=== PATIENT | male | born 1975 | race African-American/Black ===

== ENCOUNTER 2022-09-02 09:33 | Inpatient (IN) | payer MEDICAID ==
[~2022-09-02] VITALS: Ht 182.9 cm; Wt 68.0 kg
--- NOTE | 2022-09-02 09:58 | NUR ---
Pt CONNER, on a stretcher. Pt stated that he's experiencing pain on his head, R shoulder and L hip d/t falling of the stairs last night. Rated pain 8/10, aching, denies dizziness, n/v. Pt is not in acute distress. Pt stated that he has allergic reaction from "some meds" - per pt, but is uncertain which medications he is allergic to, stated that he becomes itchy after taking meds and that is all. Pt stays at home with the girlfriend. Seen by Dr. Camarillo for [facility].
[2022-09-02] MEDS ORDERED: HYDROCODONE/APAP 5-325MG TABLET ONE (10:27)
[2022-09-02] MEDS ORDERED: HYDROCODONE/APAP 5-325MG TABLET PO ONE (10:30)
--- NOTE | 2022-09-02 12:02 | NUR ---
COVID swab collected and sent to LAB.
[2022-09-02 12:06] LABS: HEMATOCRIT 35.1 % (36.7-47.1); MEAN CORPUSCULAR HEMOGLOBIN 34.1 uug (23.8-33.4); MEAN CORPUSCULAR VOLUME 97.5 fL (73.0-96.2); PLATELET COUNT (AUTO) 191 K/uL (152-348)
[2022-09-02 12:27] LABS: CREATININE 0.9 mg/dL (0.6-1.3); POTASSIUM 3.4 mmol/L (3.5-5.1)
[2022-09-02] MEDS ORDERED: ONDANSETRON 4 MG/2 ML VIAL IV PRN (12:30)
[2022-09-02] MEDS ORDERED: MORPHINE SULFATE 2 MG/1 ML DISP.SYRIN IV PRN (12:30)
[2022-09-02] MEDS ORDERED: hydrALAZINE HCL 20 MG/1 ML VIAL IV PRN (12:30)
[2022-09-02] MEDS ORDERED: MORPHINE SULFATE 2 MG/1 ML DISP.SYRIN ONE (12:33)
[2022-09-02] MEDS ORDERED: ACETAMINOPHEN 325 MG TABLET ONE (12:33)
[2022-09-02] MEDS ORDERED: hydrALAZINE HCL 20 MG/1 ML VIAL ONE (12:33)
[2022-09-02] MEDS ORDERED: ONDANSETRON 4 MG/2 ML VIAL ONE ×2 (12:33→16:20)
--- NOTE | 2022-09-02 12:45 | NUR ---
Frannie RN was unavailable to receive report. Will try again in 15 mins.
--- NOTE | 2022-09-02 13:03 | NUR ---
Fran stevens in [facility] - 09/02/22 at 1321 by ISAIAS Report given to Deya FITZGERALD
--- NOTE | 2022-09-02 13:03 | NUR ---
Report given to Deya ROMO.
[2022-09-02 14:30] VITALS: BP 109/92
--- NOTE | 2022-09-02 14:49 | NUR ---
46 year old male received to room 305 for left hip fx.pt is axox4 vs are stable call light with in reach md notified the admission
[2022-09-02] MEDS ORDERED: GLYCOPYRROLATE 0.2 MG/ML VIAL ONE (16:20)
[2022-09-02] MEDS ORDERED: CEFAZOLIN 1 G VIAL ONE (16:20)
[2022-09-02] MEDS ORDERED: DEXAMETHASONE SOD PHOSPHATE 4 MG INJ ONE (16:20)
[2022-09-02] MEDS ORDERED: KETOROLAC TROMETHAMINE 30 MG INJ ONE (16:20)
[2022-09-02] MEDS ORDERED: LIDOCAINE-MPF 2% 5 ML VIAL ONE (16:20)
[2022-09-02] MEDS ORDERED: PROPOFOL 200 MG/20 ML BOTTLE ONE (16:20)
[2022-09-02] MEDS ORDERED: LORAZEPAM 2 MG/1 ML VIAL IV PRN (17:30)
[2022-09-02] MEDS ORDERED: CHLORDIAZEPOXIDE HCL 25 MG CAPSULE PO ONE (17:30)
--- NOTE | 2022-09-02 19:30 | NUR ---
RECEIVED PATIENT SLEEPING IN BED. AROUSE TO VERBAL STIMULI. AOX4. NO COMPLAIN OF PAIN AT THIS TIME. DENIES ANY SOB. IV SITE ON LEFT FA INTACT AND PATENT. SAFETY AND COMFORT MEASURES INITIATED AND CALL LIGHT WITHIN REACH. CONTINUE TO MONITOR.
--- NOTE | 2022-09-02 20:03 | NUR ---
Telephone call from lab and reported Troponin level of 107. Value trending on expected direction.
--- NOTE | 2022-09-02 20:15 | NUR ---
PATIENT REFUSED TO WEAR RIGHT ARM SLING. STATED "I DON'T WANT TO BE BOTHERED, DO IT IN THE MORNING." EDUCATION PROVIDED BUT CONTINUED TO REFUSE. WILL TRY AGAIN IN THE MORNING.
[2022-09-02] MEDS: CHLORDIAZEPOXIDE HCL 25 MG CAPSULE PO SCH (21:09)
[2022-09-02] MEDS: HEPARIN SODIUM,PORCINE 5,000 UNITS/ML VIAL SQ SCH (21:09)
[2022-09-02] MEDS: ACETAMINOPHEN 325 MG TABLET PO PRN (22:15)
[2022-09-03 04:30] VITALS: BP 110/79
[2022-09-03] MEDS: ACETAMINOPHEN 325 MG TABLET PO PRN (05:42)
[2022-09-03 05:44] LABS: HEMATOCRIT 36.6 % (36.7-47.1); MEAN CORPUSCULAR HEMOGLOBIN 34.6 uug (23.8-33.4); MEAN CORPUSCULAR VOLUME 98.2 fL (73.0-96.2); PLATELET COUNT (AUTO) 183 K/uL (152-348)
[2022-09-03 05:59] LABS: ETHANOL < 3 MG/DL (0-0)
[2022-09-03 06:01] LABS: CARBON DIOXIDE 29 mmol/L (21-32); CHLORIDE 101 mmol/L (98-107); CREATININE 0.9 mg/dL (0.6-1.3); GLUCOSE 133 mg/dL (74-106); POTASSIUM 3.2 mmol/L (3.5-5.1); UREA NITROGEN, BLOOD 9 mg/dL (7-18)
[2022-09-03 06:06] LABS: ALANINE AMINOTRANSFERASE 79 U/L (16-63); ALKALINE PHOSPHATASE 60 U/L (50-136); ASPARTATE AMINOTRANSFERASE 91 U/L (15-37); BILIRUBIN,TOTAL 1.2 mg/dL (0.2-1.0); PHOSPHOROUS 3.2 mg/dL (2.5-4.9); TOTAL PROTEIN, SERUM 6.7 g/dL (6.4-8.2)
--- NOTE | 2022-09-03 06:30 | NUR ---
PATIENT SLEPT INTERMITTENTLY THROUGH THE NIGHT. AROUSE TO VERBAL STIMULI. AOX4. COMPLAIN OF RIGHT HIP PAIN. TYLENOL GIVEN PRN AND EFFECTIVE. DENIES ANY SOB. NPO INITIATED AT MIDNIGHT FOR LEFT HIP IM NAILING TODAY. IV SITE ON LEFT FA INTACT AND PATENT. ENFORCED EDUCATION ON RIGHT SLING. PATIENT CONTINUES TO REFUSE SLING. SAFETY AND COMFORT MEASURES MAINTAINED AND CALL LIGHT WITHIN REACHED.
[2022-09-03] MEDS: HEPARIN SODIUM,PORCINE 5,000 UNITS/ML VIAL SQ SCH (08:02)
[2022-09-03] MEDS: CHLORDIAZEPOXIDE HCL 25 MG CAPSULE PO SCH ×2 (08:02→16:41)
[2022-09-03] MEDS ORDERED: POTASSIUM CHLORIDE 20 MEQ TAB.PRT.SR PO ONE (10:00)
[2022-09-03] MEDS ORDERED: IV LACTATED RINGERS SOLUTION 1,000 ML IV PRN (10:45)
[2022-09-03] MEDS: HYDROMORPHONE 1 MG/1 ML DISP.SYRIN IV PRN (11:02)
[2022-09-03 11:45] VITALS: BP 112/75
--- NOTE | 2022-09-03 13:05 | NUR ---
pt went to or via bed for surgery in stable condition
[2022-09-03] MEDS ORDERED: HYDROMORPHONE 2 MG/1 ML DISP.SYRIN ONE (13:26)
[2022-09-03] MEDS ORDERED: MIDAZOLAM HCL 2 MG/2 ML VIAL ONE (13:26)
[2022-09-03] MEDS ORDERED: VANCOMYCIN 1000 MG VIAL ONE (13:40)
[2022-09-03] MEDS ORDERED: BUPIVACAINE 0.25% 30 ML VIAL ONE (13:43)
[2022-09-03] MEDS ORDERED: SEVOFLURANE 250 ML BOTTLE ONE (14:20)
[2022-09-03] MEDS ORDERED: FENTANYL CITRATE 100 MCG/2 ML AMPUL ONE (15:39)
[2022-09-03] MEDS ORDERED: POTASSIUM CHLORIDE 20 MEQ in IV D5 1/2 NS 1000 ML 1,000 ML IV PRN (16:00)
--- NOTE | 2022-09-03 16:39 | NUR ---
pt received from recovery room via bed in stable condition call light with in reach vs are stable
[2022-09-03] MEDS: LACTATED RINGERS IV PRN (16:41)
[2022-09-03] MEDS: POTASSIUM CHLORIDE IV PRN (16:41)
[2022-09-03 16:51] VITALS: BP 134/90
[2022-09-03 20:00] VITALS: BP 124/86
[2022-09-03] MEDS ORDERED: ACETAMINOPHEN ES 500 MG TABLET PO PRN (20:45)
[2022-09-03] MEDS: ACETAMINOPHEN ES 500 MG TABLET PO PRN (20:55)
[2022-09-03] MEDS: CEFAZOLIN 1 G in IV DEXTROSE 5% 50 ML IV SCH (21:57)
[2022-09-04 04:00] VITALS: BP 121/82
[2022-09-04] MEDS: HYDROMORPHONE 1 MG/1 ML DISP.SYRIN IV PRN ×4 (05:16→18:17)
[2022-09-04] MEDS: LACTATED RINGERS IV PRN (05:17)
[2022-09-04] MEDS: POTASSIUM CHLORIDE IV PRN (05:17)
[2022-09-04] MEDS: CEFAZOLIN 1 G in IV DEXTROSE 5% 50 ML IV SCH (05:17)
--- NOTE | 2022-09-04 05:27 | NUR ---
Slept intermittently. Noticed some restlessness and anxiety, Ativan given, tolerated well. IV site intact. No distress noted at this time. Will endorse to day shift.
[2022-09-04 06:44] LABS: CREATININE 0.9 mg/dL (0.6-1.3); POTASSIUM 3.7 mmol/L (3.5-5.1)
[2022-09-04] MEDS: CHLORDIAZEPOXIDE HCL 25 MG CAPSULE PO SCH ×2 (08:25→16:50)
[2022-09-04] MEDS: HEPARIN SODIUM,PORCINE 5,000 UNITS/ML VIAL SQ SCH ×2 (08:25→20:09)
[2022-09-04] MEDS: ACETAMINOPHEN ES 500 MG TABLET PO PRN ×2 (08:48→20:14)
--- NOTE | 2022-09-04 11:30 | NUR ---
Pt was given a dose of Dilaudid (0.5 mg) at 11:15 am, 5 minutes after that he stated he never got his dose of Dilaudid. EV and Dr Reyes and charge nurse are informed. Pt is being rude and loud, screaming at stuff.
--- NOTE | 2022-09-04 12:10 | NUR ---
pt irate and screaming in the hallway saying he didnt get his paihn medication, Dr Reyes talked to pt and ordered a one time dose of Dilaudid 0.5mg IV- med given by Dr Reyes to pt-at 1216- medicine entered on the order prn q 6h at 1216 instead of one time order
[2022-09-04] MEDS: HYDROMORPHONE 1 MG/1 ML DISP.SYRIN IV ONE ×2 (12:16→13:02)
[2022-09-04 16:00] VITALS: BP 129/80
[2022-09-04 20:22] VITALS: BP 123/77
[2022-09-05] MEDS: HYDROMORPHONE 1 MG/1 ML DISP.SYRIN IV PRN ×5 (00:20→22:53)
[2022-09-05] MEDS: ACETAMINOPHEN ES 500 MG TABLET PO PRN ×4 (02:32→20:38)
[2022-09-05] MEDS ORDERED: NAPR-1164 PO (07:06)
[2022-09-05] MEDS ORDERED: ACET-73 PO (07:06)
[2022-09-05] MEDS ORDERED: PANT40TA2 PO (07:06)
[2022-09-05] MEDS: HEPARIN SODIUM,PORCINE 5,000 UNITS/ML VIAL SQ SCH ×2 (08:30→20:30)
[2022-09-05 09:15] VITALS: BP 118/82
--- NOTE | 2022-09-05 09:38 | NUR ---
DISCHARGE ORDER GIVEN. NOTOFIED PT. PT REFUSED TO BE DISCHARGE TODAY. NOTIFIED. Addendum: 09/05/22 at 1141 by JOSSUE COE RN CANCELLED DISCHARGE FOR TODAY.
[2022-09-05 11:20] VITALS: BP 117/78
--- NOTE | 2022-09-05 11:39 | NUR ---
PT WAS SEEN BY MD. DISCUSSED REGARDING DISCHARGE. PT VERBALIZED UNDERSTANDING. PT WILL BE DISCHARGE TOMORROW MORNING.
[2022-09-05] MEDS: GLUCERNA SHAKE 237 ML CAN PO SCH (13:30)
[2022-09-05 15:24] VITALS: BP 122/94
[2022-09-05 20:08] VITALS: BP 120/79
[2022-09-05] MEDS ORDERED: LORAZEPAM 1 MG TABLET PO ONE (23:15)
[2022-09-06] MEDS: ACETAMINOPHEN ES 500 MG TABLET PO PRN ×2 (03:54→09:13)
--- NOTE | 2022-09-06 07:43 | NUR ---
Awake, alert, oriented x 4. No reports of pain at this time
[2022-09-06] MEDS: GLUCERNA SHAKE 237 ML CAN PO SCH (09:13)
[2022-09-06] MEDS: HEPARIN SODIUM,PORCINE 5,000 UNITS/ML VIAL SQ SCH (09:13)
[2022-09-06] MEDS ORDERED: IBUPROFEN 600 MG TABLET PO PRN (09:30)
[2022-09-06 10:41] VITALS: BP 132/80
[2022-09-06 14:56] VITALS: BP 135/71
--- NOTE | 2022-09-06 18:26 | NUR ---
With discharge order to home with Home health arranged. Saline lock removed. Prescription and DC instructions given, verbalized understanding. Went home per wheelchair in fair condition, not in distress, afebrile with own private car transportation.
== END 2022-09-06 18:25 | disposition home health service (06) | DRG 308 ==
LOC: ER 09:33 → MEDSURG3 13:37
PROVIDERS: ADMIT Internal Medicine; ATTEND Nurse Practitioner Acute Care
PROC: 0QS736Z Reposition Left Upper Femur with Intramedullary Internal Fixation Device, Percutaneous Approach (ICD-10-PCS; principal; 2022-09-03)
DX: S72.25XA Nondisplaced subtrochanteric fracture of left femur, initial encounter for closed fracture (principal); M62.82 Rhabdomyolysis; D64.9 Anemia, unspecified; D72.829 Elevated white blood cell count, unspecified; S42.121A Displaced fracture of acromial process, right shoulder, initial encounter for closed fracture; D75.89 Other specified diseases of blood and blood-forming organs; E87.6 Hypokalemia; W10.9XXA Fall (on) (from) unspecified stairs and steps, initial encounter; Z20.822 Contact with and (suspected) exposure to COVID-19; Y90.1 Blood alcohol level of 20-39 mg/100 ml; S70.12XA Contusion of left thigh, initial encounter; X58.XXXA Exposure to other specified factors, initial encounter; Y93.9 Activity, unspecified; Y92.009 Unspecified place in unspecified non-institutional (private) residence as the place of occurrence of the external cause; F10.10 Alcohol abuse, uncomplicated; F17.200 Nicotine dependence, unspecified, uncomplicated
CPT/HCPCS: 36415; 71045; 72192; 73030; 73502; 73503; 84100; 85025; 85730; 93005; A4649; A4663; A6209; A9150; C1713; G0378; G0480; J0360; J0690; J1100; J1170; J1644; J1885; J2060; J2250; J2270; J2405; J3010; J3370; J3480; J3490; J7120